=== PATIENT | male | born 1975 | race African-American/Black ===

== ENCOUNTER → 2019-02-19 | Outpatient (CLI) | payer OTHER ==
[2016-05-23 11:20] VITALS: BP 141/85
[~2019-02-19] MED LIST: CIPR500T94 PO
--- NOTE | 2019-02-19 16:45 | RAD ---
MR of the right ankle HISTORY: Anterolateral ankle pain. TECHNIQUE: Routine multiplanar sequences are obtained. FINDINGS: The peroneal tendons are intact. The anterior talofibular ligament is somewhat heterogeneous and attenuated, compatible with a sprain. The calcaneofibular ligament demonstrates a similar appearance. Posterior talofibular ligament is intact. The inferior tibiofibular ligaments appear intact. Posterior tibial and flexor tendons are intact. Medial ligamentous structures appear intact. Anterior tibial and extensor tendons are intact. The Achilles tendon is intact with a small subjacent enthesophyte. No evidence of acute plantar fasciitis. Subtalar joints are patent. Tarsal sinus intact. Talar dome intact. Small tibiotalar joint effusion. No acute fracture or aggressive bone destruction. No abnormal soft tissue fluid collection. IMPRESSION: 1. Findings compatible with anterior talofibular and calcaneofibular ligament sprain. 2. Small tibiotalar joint effusion. Electronically signed by: Aubrey Duncan MD (02/19/2019 4:43 PM) [facility]
== END | disposition home or self-care (01) ==
LOC: MRI 14:21
PROVIDERS: ATTEND Orthopaedic Surgery
DX: M25.471 Effusion, right ankle (principal)
CPT/HCPCS: 73721